=== PATIENT | female | born 1985 | race African-American/Black ===

== ENCOUNTER 2021-11-12 14:43 | Emergency (ER) | payer OTHER, SELFPAY ==
[2021-11-12 14:48] VITALS: BP 130/86; PULSE 71; RESP 20; TEMP 36.7; O2SAT 100
--- NOTE | 2021-11-12 15:44 | ED.FEMALEGU ---
HPI - Female Genitourinary General Chief complaint: LICENSED SURVEYOR Stated complaint: HSV outbreak Time Seen by Provider: 11/12/21 14:56 History of Present Illness HPI Narrative: 36-year-old female presents the emergency room for evaluation of a burning sensation to her vagina. Patient states she has a history of herpes, and believes that she may be experiencing another outbreak. Denies dysuria. States that she feels a bump on her external labia on the left side. Related Data Home Medications Medication Instructions Recorded Confirmed alprazolam 0.5 mg tablet mg 11/12/21 11/12/21 bupropion HCl 150 mg tablet,12 hr mg PO 11/12/21 sustained-release diclofenac sodium 75 mg mg PO 11/12/21 tablet,delayed release Allergies Allergy/AdvReac Type Severity Reaction Status Date / Time Penicillins Allergy Rash Verified 11/12/21 15:45 Review of Systems Review of Systems: CONSTITUTIONAL: Denies fever, chills, or sweats. EYES: Denies visual changes, redness, or discharge. ENT: Denies rhinorrhea, congestion, sore throat, or otalgia. CARDIOVASCULAR: Denies chest pain, palpitations, or edema. RESPIRATORY: Denies cough or dyspnea. GASTROINTESTINAL: Denies abdominal pain, nausea, vomiting, or diarrhea. GENITOURINARY: Denies dysuria or hematuria. SKIN: Vaginal rash MUSCULOSKELETAL: Denies back pain, joint pain, or myalgia. NEUROLOGIC: Denies headache, numbness, dizziness, or weakness. PSYCHIATRIC: Denies anxiety or depression. Exam Narrative: GENERAL: Well-appearing, well-nourished, no physical limitations, and in no acute distress. HEAD: Normocephalic, atraumatic. EYES: Conjunctivae normal, PERRLA and EOMI. CHEST: Clear to auscultation. No respiratory distress. No wheezes rales or rhonchi. No tenderness. HEART: Regular rate and rhythm. No murmur heard. Normal peripheral pulses. ABDOMEN: Soft, nontender, nondistended, normal active bowel sounds. : 1 vesicular lesion to left external labia EXTREMITIES: Normal range of motion. No edema. No clubbing or cyanosis SKIN: Warm, dry, no rash. No noted wounds NEURO: No focal deficits. Alert and oriented x3. MAEW. CN's II-XI intact bilaterally, normal gait PSYCH: Cooperative. Normal mood and affect. Course Vital Signs Vital signs: Vital Signs Temperature 36.7 C 11/12/21 14:48 Pulse Rate 71 11/12/21 14:48 Respiratory Rate 20 11/12/21 14:48 Blood Pressure 130/86 11/12/21 14:48 Pulse Oximetry 100 11/12/21 14:48 Oxygen Delivery Room Air 11/12/21 14:48 Temperature 36.7 C 11/12/21 14:48 Pulse Rate 71 11/12/21 14:48 Respiratory Rate 20 11/12/21 14:48 Blood Pressure 130/86 11/12/21 14:48 Pulse Oximetry 100 11/12/21 14:48 Oxygen Delivery Room Air 11/12/21 14:48 Discharge Plan Discharge Clinical Impression: Herpes Patient Disposition: Home, Self-Care Condition: Stable Instructions: Antibiotic Form, Genital Herpes Simplex (ED) Prescriptions: New valacyclovir 1 gram tablet 1,000 mg PO Q12H 10 Days Qty: 20 0RF No Action bupropion HCl 150 mg tablet sustained-release 12 hr PO alprazolam 0.5 mg tablet diclofenac sodium 75 mg tablet,delayed release (DR/EC) PO Follow-up/Referrals: PHYSICIAN,EXTRACTIVE METALLURGIST [Primary Care Provider] -
== END 2021-11-12 16:54 | disposition home or self-care (01) ==
LOC: ANHED 16:49
PROVIDERS: Emergency Provider Nurse Practitioner Family
DX: A60.00 Herpesviral infection of urogenital system, unspecified (principal)
CPT/HCPCS: 96372; 99283; J1100